=== PATIENT | male | born 1990 | race Caucasian/White ===

== ENCOUNTER → 2021-12-08 | Emergency (ER) | payer MEDICAID ==
[~2021-12-08] VITALS: Ht 167.6 cm; Wt 108.9 kg
[~2021-12-08] MED LIST: HYDR-4209 PO; HYDROCODONE/APAP 10/325MG TABLET ONE; HYDROCODONE/APAP 10/325MG TABLET PO ONE; ONDANSETRON 4 MG TAB.RAPDIS ONE; ONDANSETRON 4 MG TAB.RAPDIS SL ONE
--- NOTE | 2021-12-08 01:43 | NUR ---
PATIENT BIBSELF C/O CHEST PAIN S/P FALL DOWN FROM 1/2 FLIGHT OF STAIRS. PATIENT IS A/O X 4, RR EVEN AND UNLABORED, NO SOB NOTED. PATIENT CONNECTED TO CARDIAC AND POX MONITOR.
--- NOTE | 2021-12-08 02:57 | NUR ---
Patient discharged to home in stable condition. Written and verbal after care instructions given. Patient verbalizes understanding of instruction. Patient ambulatory with a steady gait
[2021-12-08 02:58] VITALS: BP 134/76
== END | disposition home or self-care (01) ==
LOC: ER 01:33
DX: S20.212A Contusion of left front wall of thorax, initial encounter (principal); F15.10 Other stimulant abuse, uncomplicated; F17.290 Nicotine dependence, other tobacco product, uncomplicated; Z71.6 Tobacco abuse counseling; Z88.8 Allergy status to other drugs, medicaments and biological substances; W18.39XA Other fall on same level, initial encounter; Y93.89 Activity, other specified; Y92.89 Other specified places as the place of occurrence of the external cause; Y99.8 Other external cause status
CPT/HCPCS: 71045; 99283; 99406; Q0162

== ENCOUNTER 2022-04-12 20:59 | Emergency (ER) | payer MEDICAID ==
[~2022-04-12] VITALS: Ht 167.6 cm; Wt 90.7 kg
[~2022-04-12 20:59] MED LIST changes: -HYDROCODONE/APAP 10/325MG TABLET ONE; -HYDROCODONE/APAP 10/325MG TABLET PO ONE; -ONDANSETRON 4 MG TAB.RAPDIS ONE; -ONDANSETRON 4 MG TAB.RAPDIS SL ONE
--- NOTE | 2022-04-12 21:12 | NUR ---
CALLED FOR TRIAGE NOT IN WAITING ROOM
--- NOTE | 2022-04-12 21:52 | NUR ---
BIBS C/O L ELBOW PAIN W/ LAC & R RIB PAIN S/P GLF +HT -KO -BLOODTHINNERS. TDAP NOT UPDATE. +HEROIN AND ETOH. AWAKE AND ALERT X4 BREATHING EVEN AND UNLABORED AMBULATORY WITH STEADY GAIT.
--- NOTE | 2022-04-12 22:17 | NUR ---
DR MERNA GRIFFITH PER FAMIL[facility] DUGGAN.
[2022-04-12] MEDS ORDERED: ACETAMINOPHEN ES 500 MG TABLET ONE (22:27)
[2022-04-12] MEDS ORDERED: TDAP [DIPH/PERTUSSIS/TET] 0.5 ML VIAL IM ONE ×2 (22:27→22:30)
[2022-04-12] MEDS ORDERED: ACETAMINOPHEN 325 MG TABLET PO ONE (22:30)
[2022-04-12] MEDS ORDERED: IV NS 0.9% 1,000 ML BAG IV ONE (22:30)
[2022-04-12] MEDS ORDERED: CEFAZOLIN 1 GM VIAL IM ONE (22:30)
[2022-04-12] MEDS ORDERED: LIDOCAINE 1% INJ 50 ML MDV IJ ONE (22:44)
[2022-04-12] MEDS ORDERED: CEFTRIAXONE 1 G VIAL ONE (22:44)
[2022-04-12] MEDS ORDERED: NALO4SPR BNOSTRILS (22:50)
[2022-04-12] MEDS ORDERED: CEPH500C2 PO (22:50)
[2022-04-12] MEDS ORDERED: CEFTRIAXONE 1 G VIAL IM ONE (23:00)
--- NOTE | 2022-04-12 23:05 | NUR ---
Patient does not wish to proceed with medical care recommended by OLGA LIDIA Hernández. Patient given information related to possible complications, up to and including , which could occur as a result of leaving the hospital at this time. Patient verbalizes understanding of risks involved due to leaving against medical advice. Patient has signed AMA form.
[2022-04-12 23:11] VITALS: BP 162/100
== END 2022-04-12 23:12 | disposition left against medical advice (07) ==
LOC: ER 21:09
DX: S52.002B Unspecified fracture of upper end of left ulna, initial encounter for open fracture type I or II (principal); F11.10 Opioid abuse, uncomplicated; F15.10 Other stimulant abuse, uncomplicated; F10.10 Alcohol abuse, uncomplicated; F17.200 Nicotine dependence, unspecified, uncomplicated; Z59.00 Homelessness unspecified; Z88.6 Allergy status to analgesic agent; Z79.899 Other long term (current) drug therapy; W18.39XA Other fall on same level, initial encounter; Y93.89 Activity, other specified; Y92.89 Other specified places as the place of occurrence of the external cause; Y99.8 Other external cause status; Y90.9 Presence of alcohol in blood, level not specified
CPT/HCPCS: 29105; 71045; 73080; 90471; 90715; 93005; 96372; 99284; 99406; J0690; J0696; J3490; J7030

== ENCOUNTER 2022-05-03 16:55 | Emergency (ER) | payer MEDICAID ==
[~2022-05-03] VITALS: Ht 167.6 cm; Wt 92.1 kg
[~2022-05-03 16:55] MED LIST changes: +CEPH500C2 PO; +NALO4SPR BNOSTRILS
--- NOTE | 2022-05-03 17:08 | NUR ---
TO ER BED 13, [id number] FOUND ASLEEP INSIDE A CONVINIENT STORE, POSS ETOH/DRUG ABUSE, AAOX3, BREATHING EVEN AND NON LABORED, CONNECTED TO MONITOR, AWAITING MD LACEY
--- NOTE | 2022-05-03 17:40 | NUR ---
SALINE LOCK ESTABLISHED, BLOOD DRAWN AND SENT TO LAB
--- NOTE | 2022-05-03 17:43 | NUR ---
UNABLE TO PROVIDE URINE AT THIS TIME
[2022-05-03 17:49] LABS: BASOPHILS # (AUTO) 0.1 K/uL (0.0-0.2); BASOPHILS % (AUTO) 0.8 % (0.0-2.0); HEMATOCRIT 36 % (39-51); HEMOGLOBIN 12.2 g/dL (13.5-17.5); LYMPHOCYTES # (AUTO) 1.4 K/uL (0.8-4.8); MEAN CORPUSCULAR HGB CONC 34 g/dl (31.0-36.0); MEAN CORPUSCULAR VOLUME 81 fL (80-96); MONOCYTES # (AUTO) 0.5 K/uL (0.1-1.30); MONOCYTES % (AUTO) 7.2 % (2.0-12.0); NEUTROPHILS # (AUTO) 4.7 K/uL (1.8-8.9); PLATELET COUNT (AUTO) 247 K/uL (150-450); RED BLOOD CELL COUNT(AUTO) 4.41 MIL/uL (4.5-6.0); WHITE BLOOD COUNT (AUTO) 6.7 K/uL (4.3-11.0)
[2022-05-03 19:22] LABS: CALCIUM, SERUM 8.8 mg/dL (8.5-10.1); CARBON DIOXIDE 33 mmol/L (21-32); CHLORIDE 102 mmol/L (98-107); GLUCOSE 80 mg/dL (74-106); POTASSIUM 3.3 mmol/L (3.5-5.1); SODIUM SERUM 140 mmol/L (136-145); UREA NITROGEN, BLOOD 14 mg/dL (7-18)
[2022-05-03 19:23] LABS: ALANINE AMINOTRANSFERASE 30 U/L (12-78); ALBUMIN 3.6 g/dL (3.4-5.0); ALKALINE PHOSPHATASE 133 U/L (46-116); ASPARTATE AMINOTRANSFERASE 23 U/L (15-37); BILIRUBIN,DIRECT 0.1 mg/dL (0.0-0.2); BILIRUBIN,TOTAL 0.3 mg/dL (0.2-1.0); CREATININE 0.9 mg/dL (0.6-1.3); TOTAL PROTEIN, SERUM 7.9 g/dL (6.4-8.2)
[2022-05-03 20:32] LABS: ALCOHOL, BLOOD < 3 mg/dL (0-0)
[2022-05-03 20:33] LABS: ACETAMINOPHEN < 10 ug/ml (10-30)
--- NOTE | 2022-05-03 21:06 | NUR ---
URINE COLLECTED AND SENT TO LAB
[2022-05-03] MEDS ORDERED: POTASSIUM CHLORIDE 20 MEQ TAB.PRT.SR PO ONE ×2 (21:30→21:34)
[2022-05-03 21:40] LABS: BILIRUBIN,URINE NEGATIVE (NEGATIVE); COLOR,URINE YELLOW (YELLOW); LEUKOCYTE ESTERASE ,URINE NEGATIVE (NEGATIVE); NITRITE, URINE NEGATIVE (NEGATIVE); PH,URINE 6.5 (5.0-8.0); UGLUCOSE NEGATIVE (NEGATIVE)
[2022-05-03 21:41] LABS: PROTEIN,URINE NEGATIVE (NEGATIVE)
[2022-05-04] MEDS ORDERED: NALO4SPR BNOSTRILS (05:44)
--- NOTE | 2022-05-04 05:45 | NUR ---
PT IS AWAKE. AMBULATORY ON STEADY GAIT. PT PROVIDED WITH WATER.
--- NOTE | 2022-05-04 05:46 | NUR ---
IV removed. Catheter intact and site benign. Pressure and 4x4 applied to site. No bleeding noted.
[2022-05-04 05:47] VITALS: BP 135/82
--- NOTE | 2022-05-04 05:47 | NUR ---
Patient discharged to home in stable condition. Written and verbal after care instructions given. Patient verbalizes understanding of instruction. Pt ambulatory with a steady gait
== END 2022-05-04 05:48 | disposition home or self-care (01) ==
LOC: ER 17:42
DX: T40.411A Poisoning by fentanyl or fentanyl analogs, accidental (unintentional), initial encounter (principal); R41.82 Altered mental status, unspecified; F17.200 Nicotine dependence, unspecified, uncomplicated; Z88.8 Allergy status to other drugs, medicaments and biological substances; Z59.00 Homelessness unspecified; Z79.899 Other long term (current) drug therapy; Y92.89 Other specified places as the place of occurrence of the external cause
CPT/HCPCS: 36415; 71045-TC; 80048-TC; 80076-TC; 83735-TC; 84484-TC; 85025-TC; G0480

== ENCOUNTER 2025-02-26 01:31 | Inpatient (IN) | payer MEDICAID ==
[~2025-02-26] VITALS: Ht 167.6 cm; Wt 115.7 kg
[2025-02-26] MEDS: IV NS 0.9% 1,000 ML BAG IV ONE (02:00)
[2025-02-26 02:25] LABS: APPEARANCE,URINE CLEAR (CLEAR); BILIRUBIN,URINE NEGATIVE (NEGATIVE); BLOOD, URINE 1+ Ery/uL (NEGATIVE); COLOR,URINE YELLOW (YELLOW); KETONES,URINE NEGATIVE (NEGATIVE); LEUKOCYTE ESTERASE ,URINE NEGATIVE (NEGATIVE); NITRITE, URINE NEGATIVE (NEGATIVE); PROTEIN,URINE 2+ mg/dl (NEGATIVE); UGLUCOSE NEGATIVE (NEGATIVE)
[2025-02-26 02:26] LABS: BASOPHILS # (AUTO) 0.1 K/uL (0.0-0.2); BASOPHILS % (AUTO) 0.7 % (0.0-2.0); EOSINOPHILS # (AUTO) 0.1 K/uL (0.0-0.7); EOSINOPHILS % (AUTO) 0.8 % (0.0-6.0); HEMATOCRIT 39 % (39-51); HEMOGLOBIN 13.3 g/dL (13.5-17.5); LYMPHOCYTES # (AUTO) 1.5 K/uL (0.8-4.8); LYMPHOCYTES % (AUTO) 17.6 % (20.0-44.0); MEAN CORPUSCULAR HEMOGLOBIN 27 PG (26.0-33.0); MEAN CORPUSCULAR HGB CONC 34 g/dl (31.0-36.0); MEAN CORPUSCULAR VOLUME 79 fL (80-96); MONOCYTES # (AUTO) 0.5 K/uL (0.1-1.30); NEUTROPHILS # (AUTO) 6.2 K/uL (1.8-8.9); NEUTROPHILS % (AUTO) 74.9 % (43.0-81.0); PLATELET COUNT (AUTO) 246 K/uL (150-450); RED BLOOD CELL COUNT(AUTO) 4.97 MIL/uL (4.5-6.0); WHITE BLOOD COUNT (AUTO) 8.3 K/uL (4.3-11.0)
[2025-02-26 02:34] LABS: ADD URINE CULTURE NO; BACTERIA,URINE None seen /HPF (None Seen); SQUAMOUS EPITHELIAL CELL,UR None Seen /HPF (None Seen); WBC,URINE 0-2 /HPF (0-3)
[2025-02-26 02:35] LABS: MUCUS,URINE Moderate /LPF (None Seen)
[2025-02-26 02:35] LABS: CALCIUM, SERUM 9.1 mg/dL (8.5-10.1); CARBON DIOXIDE 27 mmol/L (21-32); CHLORIDE 103 mmol/L (98-107); CREATININE 1.3 mg/dL (0.6-1.3); GLUCOSE 160 mg/dL (74-106); SODIUM SERUM 142 mmol/L (136-145); UREA NITROGEN, BLOOD 10 mg/dL (7-18)
[2025-02-26 02:39] LABS: BARBITURATE, URINE NEGATIVE (NEGATIVE); BENZODIAZEPINE, URINE NEGATIVE (NEGATIVE); COCCAINE, URINE NEGATIVE (NEGATIVE); OPIATE, URINE NEGATIVE (NEGATIVE); PHENCYCLIDINE SCREEN,URINE NEGATIVE (NEGATIVE)
[2025-02-26 02:41] LABS: AMPHETAMINE, URINE POSITIVE (NEGATIVE); CANNABINOID, URINE POSITIVE (NEGATIVE)
[2025-02-26 02:42] LABS: ALANINE AMINOTRANSFERASE 70 U/L (12-78); ALBUMIN 3.8 g/dL (3.4-5.0); ALCOHOL, BLOOD < 3 mg/dL (0-10); ALKALINE PHOSPHATASE 114 U/L (46-116); ASPARTATE AMINOTRANSFERASE 42 U/L (15-37); BILIRUBIN,DIRECT 0.2 mg/dL (0.0-0.2); BILIRUBIN,TOTAL 0.5 mg/dL (0.2-1.0); TOTAL PROTEIN, SERUM 7.8 g/dL (6.4-8.2)
[2025-02-26 02:43] LABS: ACETAMINOPHEN <10 ug/ml (10-30); POTASSIUM 2.6 mmol/L (3.5-5.1); SALICYLATE 1.7 mg/dL (2.8-20.0)
[2025-02-26] MEDS: POTASSIUM CHLORIDE 10 MEQ/50 ML PREMIXED IVPB FOR PERIPHERAL LINE IV ONE (03:00)
[2025-02-26] MEDS: POTASSIUM CHLORIDE 20 MEQ TAB.PRT.SR PO ONE (03:00)
[2025-02-26] MEDS ORDERED: POTASSIUM CL. PREMIX PERIPHER. 200 ML ONE (03:08)
[2025-02-26] MEDS ORDERED: POTASSIUM CHLORIDE 20 MEQ TAB.PRT.SR PO ONE (03:09)
[2025-02-26 12:30] VITALS: BP 139/73; TEMP 97.5; O2SAT 96
[2025-02-26 13:00] VITALS: BP 139/73; TEMP 97.5; O2SAT 96
[2025-02-26] MEDS ORDERED: ACETAMINOPHEN 325 MG TABLET PO PRN (13:30)
[2025-02-26] MEDS ORDERED: Z GUARD REMEDY 4 OZ OINT TP PRN (13:30)
[2025-02-26] MEDS ORDERED: ZOLPIDEM TARTRATE 5 MG TABLET PO PRN (13:30)
[2025-02-26] MEDS ORDERED: MAGNESIUM HYDROXIDE 30 ML UDC PO PRN (13:30)
[2025-02-26] MEDS ORDERED: MAG HYDROX/AL HYDROX/SIMETH 30 ML UDC PO PRN (13:30)
[2025-02-26] MEDS ORDERED: ONDANSETRON HCL/PF 4 MG/2 ML VIAL IVP PRN (13:30)
[2025-02-26] MEDS: ENOXAPARIN SODIUM 40 MG/0.4 ML DISP.SYRIN SQ SCH (18:02)
[2025-02-27 06:47] LABS: BASOPHILS % (AUTO) 0.8 % (0.0-2.0); EOSINOPHILS # (AUTO) 0.1 K/uL (0.0-0.7); EOSINOPHILS % (AUTO) 2.4 % (0.0-6.0); HEMATOCRIT 38 % (39-51); HEMOGLOBIN 12.9 g/dL (13.5-17.5); LYMPHOCYTES # (AUTO) 1.8 K/uL (0.8-4.8); LYMPHOCYTES % (AUTO) 38.8 % (20.0-44.0); MEAN CORPUSCULAR HEMOGLOBIN 27 PG (26.0-33.0); MEAN CORPUSCULAR HGB CONC 34 g/dl (31.0-36.0); MEAN CORPUSCULAR VOLUME 79 fL (80-96); MONOCYTES # (AUTO) 0.4 K/uL (0.1-1.30); MONOCYTES % (AUTO) 7.6 % (2.0-12.0); NEUTROPHILS # (AUTO) 2.4 K/uL (1.8-8.9); NEUTROPHILS % (AUTO) 50.4 % (43.0-81.0); PLATELET COUNT (AUTO) 208 K/uL (150-450); RED CELL DISTRIBUTION WIDTH 14.9 % (11.5-15.0); WHITE BLOOD COUNT (AUTO) 4.7 K/uL (4.3-11.0)
[2025-02-27 07:10] LABS: THYROID STIMULATING HORMONE 0.71 uIU/mL (0.358-3.74)
[2025-02-27 07:14] LABS: CALCIUM, SERUM 8.4 mg/dL (8.5-10.1); CREATININE 0.8 mg/dL (0.6-1.3); MAGNESIUM 2.1 mg/dL (1.8-2.4); PHOSPHORUS 2.9 mg/dL (2.5-4.9); POTASSIUM 2.9 mmol/L (3.5-5.1)
[2025-02-27 08:00] VITALS: BP 141/89; TEMP 98.1; O2SAT 98
[2025-02-27] MEDS: PANTOPRAZOLE 40 MG TABLET.DR PO SCH (08:09)
[2025-02-27] MEDS: POTASSIUM CHLORIDE 20 MEQ TAB.PRT.SR PO SCH (09:40)
[2025-02-27 12:00] VITALS: BP 151/68; TEMP 97.7; O2SAT 98
== END 2025-02-27 13:13 | disposition left against medical advice (07) | DRG 812 ==
LOC: ER 01:36 → TELE1 11:40
PROVIDERS: ADMIT Student in an Organized Health Care Education/Training Program; ATTEND Student in an Organized Health Care Education/Training Program
DX: T50.911A Poisoning by multiple unspecified drugs, medicaments and biological substances, accidental (unintentional), initial encounter (principal); I21.A1 Myocardial infarction type 2; E87.6 Hypokalemia; Z53.29 Procedure and treatment not carried out because of patient's decision for other reasons; Y92.410 Unspecified street and highway as the place of occurrence of the external cause; F12.90 Cannabis use, unspecified, uncomplicated; Z88.6 Allergy status to analgesic agent; Z59.00 Homelessness unspecified; R73.03 Prediabetes; Z72.0 Tobacco use
CPT/HCPCS: 36415; 70450-TC; 80048-TC; 80061-TC; 80076-TC; 81001; 83735-TC; 84100-TC; 84443-TC; 84484-TC; 85025-TC; 93307-TC; A4223; G0378; G0480; J1650; J3480; J7040

== ENCOUNTER 2025-07-18 15:28 | Emergency (ER) | payer OTHER, MEDICAID ==
[~2025-07-18] VITALS: Ht 167.6 cm; Wt 117.9 kg
[2025-07-18] MEDS ORDERED: ACET-2030 PO (16:52)
[2025-07-18] MEDS: ACETAMINOPHEN ES 500 MG TABLET PO ONE (17:03)
[2025-07-18 17:05] VITALS: BP 134/81; TEMP 98.3; O2SAT 97
== END 2025-07-18 17:05 ==
LOC: ER 15:48
DX: R07.1 Chest pain on breathing (principal); R06.02 Shortness of breath; F17.200 Nicotine dependence, unspecified, uncomplicated; Z59.00 Homelessness unspecified; Z88.6 Allergy status to analgesic agent
CPT/HCPCS: 71045-TC